=== PATIENT | female | born 1980 | race Caucasian/White ===

== ENCOUNTER 2018-11-07 14:24 | Emergency (ER) | payer MEDICAID ==
[~2018-11-07] VITALS: Ht 157.5 cm; Wt 63.5 kg
[2018-11-07 14:31] VITALS: BP_SYST 143
[2018-11-07] MEDS ORDERED: DEXAMETHASONE SOD PHOSPHATE 10 MG/ML VIAL IM ONE (15:00)
[2018-11-07] MEDS ORDERED: KETOROLAC TROMETHAMINE 60 MG/2 ML VIAL IM ONE (15:00)
== END 2018-11-07 15:27 | disposition home or self-care (01) ==
LOC: SED 14:24
DX: J04.0 Acute laryngitis (principal); J02.9 Acute pharyngitis, unspecified; R03.0 Elevated blood-pressure reading, without diagnosis of hypertension; Z88.0 Allergy status to penicillin
CPT/HCPCS: 36415; 81025; 86403; 87081; 96372; 99283; J1100; J1885